=== PATIENT | male | born 1940 | race Caucasian/White ===

== ENCOUNTER 2024-06-15 04:49 | Day surgery (SDC) | payer OTHER, BC ==
[2024-06-13 14:54] VITALS: BMI 27.8
[2024-06-15] MEDS ORDERED: HEPARIN NA (PORCINE) 5,000 UNITS/ML 1ML VIAL ONE (07:02)
[2024-06-15] MEDS ORDERED: LIDOCAINE HCL 1%, 10 MG/ML (20ML VIAL) ONE (07:02)
[2024-06-15] MEDS ORDERED: PROPOFOL 20 ML ONE ×2 (07:17→08:48)
[2024-06-15] MEDS ORDERED: MIDAZOLAM HCL 2 MG/2 ML SINGLE DOSE VIAL ONE (07:17)
[2024-06-15] MEDS ORDERED: PAPAVERINE HCL 30 MG/1 ML 10 ML VIAL NR ONE (07:20)
[2024-06-15] MEDS ORDERED: DEXMEDETOMIDINE HCL 200 MCG/2 ML IVPB ONE (07:20)
[2024-06-15] MEDS ORDERED: ROPIVACAINE HCL 0.5% 30ML VIAL ONE (07:20)
[2024-06-15] MEDS ORDERED: BACITRACIN ZINC 15 GM TUBE TOPICAL OINTMENT ONE (07:22)
[2024-06-15] MEDS ORDERED: oxyCODONE HCL 5 MG TABLET PO PRN ×2 (07:28→23:25)
[2024-06-15] MEDS ORDERED: ONDANSETRON 4 MG/2 ML VIAL IVPUSH PRN (07:28)
[2024-06-15] MEDS ORDERED: ceFAZolin SODIUM 1 GM VIAL ONE (08:16)
[2024-06-15] MEDS: ceFAZolin SODIUM 1 GM VIAL IVPB ONE (08:20)
[2024-06-15] MEDS ORDERED: LIDOCAINE HCL/PF 2% SDV 5ML VIAL ONE (08:25)
[2024-06-15 10:21] VITALS: RESP 18
[2024-06-15] MEDS: hydrALAZINE HCL 50 MG TABLET (FP) PO SCH (15:27)
[2024-06-15 16:14] LABS: BASO % 0.5 % (0-2.0); EOS % 4.9 % (0-4.5); HEMATOCRIT 38.8 % (35.4-49); HEMOGLOBIN 12.4 GM/dL (11.7-16.9); LYMPH % 24.4 % (8-40); MCH 26.8 pg (25.7-33.7); MCHC 31.9 g/dl (32.0-35.9); MEAN PLT VOLUME 9.7 fl (7.5-11.1); NEUT % 61.2 % (42.8-82.8); PLATELET COUNT 164 10^3/uL (134-434); RBC 4.62 M/mm3 (4.00-5.60); RDW 17.5 % (11.9-15.9); WHITE BLOOD COUNT 7.1 K/mm3 (4.0-10.0)
[2024-06-15 16:26] LABS: POTASSIUM 3.3 mmol/L (3.5-5.1)
[2024-06-15 16:28] LABS: ALBUMIN 3.2 g/dl (3.4-5.0); BLOOD UREA NITROGEN 33.7 mg/dL (7-18); CALCIUM 8.7 mg/dL (8.5-10.1); MAGNESIUM 1.8 mg/dL (1.8-2.4)
[2024-06-15 16:32] LABS: BILIRUBIN,TOTAL 0.2 mg/dL (0.2-1); PHOSPHOROUS 3.7 mg/dL (2.5-4.9); TOT PROT 6.1 g/dl (6.4-8.2)
[2024-06-15] MEDS: LACTATED RINGERS SOLUTION 1,000 ML IV SCH (17:26)
[2024-06-15] MEDS: INSULIN ASPART SLIDING SCALE (NOVOLOG) 1 VIAL SQ SCH (17:32)
[2024-06-15] MEDS: SEVELAMER CARBONATE 800 MG TAB (FP) PO SCH (17:33)
[2024-06-15] MEDS ORDERED: APIXABAN 2.5 MG TABLET PO SCH (22:00)
[2024-06-15] MEDS: POTASSIUM CHLORIDE ORAL LIQUID 20 MEQ/15 ML PO ONE (22:07)
[2024-06-15] MEDS: ATORVASTATIN CA 80 MG TABLET (FP) PO SCH (22:07)
[2024-06-15] MEDS: CARVEDILOL 12.5 MG TABLET (FP) PO SCH (22:07)
[2024-06-15] MEDS: ACETAMINOPHEN 500 MG TABLET (FP) PO PRN (23:47)
[2024-06-16 08:40] LABS: BASO % 0.6 % (0-2.0); EOS % 5.7 % (0-4.5); HEMATOCRIT 38.5 % (35.4-49); HEMOGLOBIN 12.3 GM/dL (11.7-16.9); LYMPH % 27.7 % (8-40); MCH 26.8 pg (25.7-33.7); MCHC 31.9 g/dl (32.0-35.9); MEAN CELL VOLUME 84.1 fl (80-96); MEAN PLT VOLUME 10.1 fl (7.5-11.1); MONO % 8.8 % (3.8-10.2); NEUT % 57.2 % (42.8-82.8); PLATELET COUNT 150 10^3/uL (134-434); RBC 4.58 M/mm3 (4.00-5.60); RDW 17.2 % (11.9-15.9); WHITE BLOOD COUNT 6.9 K/mm3 (4.0-10.0)
[2024-06-16 08:53] LABS: POTASSIUM 3.4 mmol/L (3.5-5.1)
[2024-06-16 08:55] LABS: BLOOD UREA NITROGEN 40.4 mg/dL (7-18); CALCIUM 8.7 mg/dL (8.5-10.1); MAGNESIUM 1.7 mg/dL (1.8-2.4)
[2024-06-16 08:59] LABS: CREATININE 4.6 mg/dL (0.55-1.3); PHOSPHOROUS 3.9 mg/dL (2.5-4.9)
[2024-06-16 09:00] LABS: BILIRUBIN,TOTAL 0.4 mg/dL (0.2-1)
[2024-06-16 09:01] LABS: TOT PROT 5.5 g/dl (6.4-8.2)
[2024-06-16] MEDS: CYANOCOBALAMIN 1,000 MCG TABLET (FP) PO SCH (09:47)
[2024-06-16] MEDS: PANTOPRAZOLE 40 MG TABLET PO SCH (09:47)
[2024-06-16] MEDS: amLODIPine BESYLATE 5 MG TABLET (FP) PO SCH (09:47)
[2024-06-16] MEDS: APIXABAN 2.5 MG TABLET PO SCH (09:47)
[2024-06-16] MEDS ORDERED: SODIUM CHLORIDE 250 ML IV PRN (09:53)
[2024-06-16] MEDS: POTASSIUM CHLORIDE ORAL LIQUID 20 MEQ/15 ML PO ONE (10:39)
[2024-06-16] MEDS: TORSEMIDE 10 MG TABLET PO SCH (14:45)
[2024-06-16 14:49] VITALS: BP 148/59; PULSE 96; TEMP 98.2
== END 2024-06-16 17:23 | disposition home health service (06) ==
LOC: JASU-SURG 04:49 → SUATTDRO 04:49 → JASUSAT 04:49 → J8W 14:27 → JASUSAT 06-16 17:23
PROVIDERS: ATTEND Nurse Practitioner Family
PROC: 031A0ZF Bypass Left Ulnar Artery to Lower Arm Vein, Open Approach (ICD-10-PCS; principal; 2024-06-15 08:00)
DX: I12.0 Hypertensive chronic kidney disease with stage 5 chronic kidney disease or end stage renal disease (principal); E11.22 Type 2 diabetes mellitus with diabetic chronic kidney disease; N18.6 End stage renal disease
CPT/HCPCS: 36415; 80053; 82962; 83735; 84100; 85025; 86704; 86803; 87340; 87517; 94760; 97116-GP; 97161-GP; J1644

== ENCOUNTER 2024-07-27 04:11 | Day surgery (SDC) | payer OTHER, BC ==
[2024-07-27] MEDS ORDERED: PAPAVERINE HCL 30 MG/1 ML 10 ML VIAL NR ONE (07:31)
[2024-07-27] MEDS ORDERED: HEPARIN NA (PORCINE) 5,000 UNITS/ML 1ML VIAL ONE (07:31)
[2024-07-27] MEDS ORDERED: LIDOCAINE HCL 1%, 10 MG/ML (20ML VIAL) ONE (07:32)
[2024-07-27] MEDS ORDERED: MIDAZOLAM HCL 2 MG/2 ML SINGLE DOSE VIAL ONE ×3 (07:58→09:10)
[2024-07-27] MEDS ORDERED: PROPOFOL 20 ML ONE ×2 (08:00→09:19)
[2024-07-27] MEDS: ceFAZolin SODIUM 1 GM VIAL IVPB ONE (08:27)
[2024-07-27] MEDS: LIDOCAINE HCL 1%, 10 MG/ML (50 mL VIAL) INF ONE ×2 (08:35)
[2024-07-27] MEDS ORDERED: BACITRACIN ZINC 15 GM TUBE TOPICAL OINTMENT ONE (10:03)
[2024-07-27] MEDS ORDERED: SODIUM CHLORIDE 1,000 ML IV SCH (10:30)
[2024-07-27 12:23] VITALS: RESP 18
[2024-07-27 15:33] VITALS: BP 129/64; PULSE 70; TEMP 97.5
== END 2024-07-27 15:10 | disposition home or self-care (01) ==
LOC: JASUSAT 04:11
PROVIDERS: ATTEND Surgery
PROC: 05WY03Z Revision of Infusion Device in Upper Vein, Open Approach (ICD-10-PCS; principal; 2024-07-27 08:00)
DX: T82.898A Other specified complication of vascular prosthetic devices, implants and grafts, initial encounter (principal); Y82.8 Other medical devices associated with adverse incidents; Y92.89 Other specified places as the place of occurrence of the external cause; I12.9 Hypertensive chronic kidney disease with stage 1 through stage 4 chronic kidney disease, or unspecified chronic kidney disease; N18.9 Chronic kidney disease, unspecified; E11.22 Type 2 diabetes mellitus with diabetic chronic kidney disease
CPT/HCPCS: 36415; 82962; 86335; 94760; J1644

== ENCOUNTER 2024-08-22 04:25 | Day surgery (SDC) | payer OTHER, BC ==
[2024-08-19 15:34] VITALS: BMI 27.1
[2024-08-22 06:52] VITALS: PULSE 66
[2024-08-22] MEDS: LIDOCAINE HCL 1% PRESERVATIVE FREE - 30ML VIAL IJ ONE ×3 (08:01)
[2024-08-22] MEDS: BUPIVACAINE HCL/PF 0.75% 10 ML VIAL NR ONE ×3 (08:01)
[2024-08-22 09:04] VITALS: BP 101/44; RESP 18; TEMP 98
== END 2024-08-22 08:50 | disposition home or self-care (01) ==
LOC: JASU-SURG 04:25
PROVIDERS: ATTEND Pain Medicine Pain Medicine
PROC: 3E0T33Z Introduction of Anti-inflammatory into Peripheral Nerves and Plexi, Percutaneous Approach (ICD-10-PCS; 2024-08-22)
PROC: 3E0T3BZ Introduction of Anesthetic Agent into Peripheral Nerves and Plexi, Percutaneous Approach (ICD-10-PCS; principal; 2024-08-22 07:30)
DX: M47.816 Spondylosis without myelopathy or radiculopathy, lumbar region (principal)
CPT/HCPCS: 76000-TC-FY